=== PATIENT | female | born 1970 ===

== ENCOUNTER 2021-10-06 08:56 | Outpatient (CLI) | payer OTHER | END 2021-10-06 08:58 | disposition home or self-care (01) | LOC: EDBD 08:56 → MAMO-SONO 08:56 | DX: N63.11 Unspecified lump in the right breast, upper outer quadrant (principal); N63.20 Unspecified lump in the left breast, unspecified quadrant ==

== ENCOUNTER 2022-05-12 07:05 | Outpatient (CLI) | payer OTHER | END 2022-05-12 07:12 | disposition home or self-care (01) | LOC: TOM 07:05 | PROVIDERS: ATTEND General Practice | DX: R19.32 Left upper quadrant abdominal rigidity (principal); R10.2 Pelvic and perineal pain ==

== ENCOUNTER 2022-10-29 08:37 | Outpatient (CLI) | payer OTHER | END 2022-10-29 08:44 | disposition home or self-care (01) | LOC: MAMO-SONO 08:37 | PROVIDERS: ATTEND Obstetrics & Gynecology | DX: N63.10 Unspecified lump in the right breast, unspecified quadrant (principal); N63.20 Unspecified lump in the left breast, unspecified quadrant; Z12.31 Encounter for screening mammogram for malignant neoplasm of breast ==

== ENCOUNTER 2024-10-29 07:47 | Outpatient (CLI) | payer OTHER | END 2024-10-29 07:53 | disposition home or self-care (01) | LOC: MAMO-SONO 07:47 | PROVIDERS: ATTEND General Practice | DX: N64.4 Mastodynia (principal); Z12.31 Encounter for screening mammogram for malignant neoplasm of breast ==